=== PATIENT | female | born 1960 | race Two or more races ===

== ENCOUNTER 2020-01-28 07:03 | Day surgery (SDC) | payer MEDICARE, MEDICAID ==
[2020-01-27 07:36] LABS: BASOPHILS % (AUTO) 0.6 % (0.0-2.0); EOSINOPHILS % (AUTO) 4.4 % (1.0-6.0); HEMATOCRIT 36.8 % (36-46); HEMOGLOBIN 12.2 g/dL (12.0-16.0); LYMPHOCYTES # (AUTO) 1.7 K/uL (1.0-4.8); LYMPHOCYTES % (AUTO) 21.7 % (22.0-44.0); MEAN CORPUSCULAR HEMOGLOBIN 28.6 pg (26.0-34.0); MEAN CORPUSCULAR HGB CONC 33.2 G/dL (31.0-37.0); MEAN CORPUSCULAR VOLUME 86 fL (80-100); MONOCYTES # (AUTO) 0.6 K/uL (0.1-1.0); MONOCYTES % (AUTO) 7.4 % (2.0-9.0); NEUTROPHILS # (AUTO) 5.2 K/uL (1.8-7.7); NEUTROPHILS % (AUTO) 65.9 % (40.0-70.0); PLATELET COUNT (AUTO) 279 K/uL (150-450); RED BLOOD CELL COUNT(AUTO) 4.28 MIL/uL (4.00-5.20); RED CELL DISTRIBUTION WIDTH 15.4 % (11.5-14.5)
[2020-01-27 07:41] LABS: CALCIUM, TOTAL 9.4 mg/dL (8.8-10.5); CREATININE 1.12 mg/dL (0.60-1.30); POTASSIUM 3.8 mmol/L (3.5-5.1)
[2020-01-27 07:53] LABS: PROTHROMBIN TIME 10.7 SEC (9.4-11.6)
[~2020-01-28] VITALS: Ht 160 cm; Wt 134.5 kg
[~2020-01-28 07:03] MED LIST: ALBU8HFA PUFF; ASPI-728 PO; CHOL100018 PO; FURO40 PO; GABA-1216 PO; GLIM4 PO; HYDR-1475 PO; INSLAN SQ; ISOS30TA6 PO; LISI-662 PO; MELO-107 PO; METF-960 PO; METO50 PO; NITR0.4T50 SL; PIOG30TA10 PO; SIMV-260 PO; SITA100 PO; SODIUM CHLORIDE 0.9% 1,000 ML ONE
[2020-01-28] MEDS ORDERED: SODIUM CHLORIDE 0.9% 1,000 ML IV ONE (07:30)
[2020-01-28 08:32] LABS: GLUCOMETER DEV NAME(LOC) SDS.; GLUCOSE,POINT OF CARE 95 MG/DL (70-110)
[2020-01-28] MEDS ORDERED: VERAPAMIL HCL 2.5 MG/ML 2 ML VIAL ONE (08:37)
[2020-01-28] MEDS ORDERED: LIDOCAINE/PF 1% 30 ML VIAL ONE (08:37)
[2020-01-28] MEDS ORDERED: NITROGLYCERIN 50 MG/D5% WATER 250 ML ONE (08:37)
[2020-01-28] MEDS ORDERED: HEPARIN SODIUM,PORCINE 1,000 UNITS/ML 10 ML VIAL ONE (08:37)
[2020-01-28] MEDS ORDERED: HEPARIN SODIUM 1000 UNITS/NS 500 ML ONE (08:37)
[2020-01-28] MEDS ORDERED: EMPA25TA PO (08:45)
[2020-01-28] MEDS ORDERED: ACET650T9 PO (08:45)
[2020-01-28] MEDS ORDERED: POTA8TAB71 PO (08:45)
[2020-01-28] MEDS ORDERED: FLUT16H NASAL (08:45)
[2020-01-28] MEDS ORDERED: BECL10.62 IH (08:45)
== END 2020-01-28 10:15 | disposition home or self-care (01) ==
LOC: CATHLAB 07:03
PROVIDERS: ATTEND Internal Medicine Cardiovascular Disease
DX: I25.10 Atherosclerotic heart disease of native coronary artery without angina pectoris (principal); Z53.8 Procedure and treatment not carried out for other reasons; E11.9 Type 2 diabetes mellitus without complications; I10 Essential (primary) hypertension; D64.9 Anemia, unspecified; J45.909 Unspecified asthma, uncomplicated; Z87.01 Personal history of pneumonia (recurrent); Z11.59 Encounter for screening for other viral diseases; Z79.01 Long term (current) use of anticoagulants; Z88.8 Allergy status to other drugs, medicaments and biological substances; Z90.710 Acquired absence of both cervix and uterus; Z98.890 Other specified postprocedural states
CPT/HCPCS: 36415; 80048; 82962; 85025; 85610; 85730; 87635; 93005; J1644 ×2; J3490 ×3; J7030

== ENCOUNTER 2020-02-10 06:54 | Day surgery (SDC) | payer MEDICARE, OTHER ==
[2020-02-09 07:39] LABS: BASOPHILS % (AUTO) 0.7 % (0.0-2.0); EOSINOPHILS % (AUTO) 4.5 % (1.0-6.0); HEMATOCRIT 35.4 % (36-46); HEMOGLOBIN 11.8 g/dL (12.0-16.0); LYMPHOCYTES # (AUTO) 2.1 K/uL (1.0-4.8); LYMPHOCYTES % (AUTO) 21.1 % (22.0-44.0); MEAN CORPUSCULAR HEMOGLOBIN 28.8 pg (26.0-34.0); MEAN CORPUSCULAR HGB CONC 33.3 G/dL (31.0-37.0); MEAN CORPUSCULAR VOLUME 86 fL (80-100); MONOCYTES # (AUTO) 0.8 K/uL (0.1-1.0); NEUTROPHILS # (AUTO) 6.5 K/uL (1.8-7.7); NEUTROPHILS % (AUTO) 65.7 % (40.0-70.0); PLATELET COUNT (AUTO) 284 K/uL (150-450); RED BLOOD CELL COUNT(AUTO) 4.09 MIL/uL (4.00-5.20); RED CELL DISTRIBUTION WIDTH 15.4 % (11.5-14.5)
[2020-02-09 07:46] LABS: CALCIUM, TOTAL 9.3 mg/dL (8.8-10.5); CREATININE 1.05 mg/dL (0.60-1.30); POTASSIUM 4.9 mmol/L (3.5-5.1)
[2020-02-09 08:30] LABS: PROTHROMBIN TIME 10.7 SEC (9.4-11.6)
[~2020-02-10] VITALS: Ht 160 cm; Wt 135.0 kg
[~2020-02-10 06:54] MED LIST changes: +ACET650T9 PO; +BECL10.62 IH; +EMPA25TA PO; +FLUT16H NASAL; -HYDR-1475 PO; -PIOG30TA10 PO; +POTA8TAB71 PO
[2020-02-10] MEDS ORDERED: SODIUM CHLORIDE 0.9% 1,000 ML IV ONE (07:30)
[2020-02-10 08:00] LABS: GLUCOMETER DEV NAME(LOC) SDS.; GLUCOSE,POINT OF CARE 246 MG/DL (70-110)
[2020-02-10] MEDS ORDERED: LIDOCAINE/PF 1% 30 ML VIAL ONE (08:36)
[2020-02-10] MEDS ORDERED: HEPARIN SODIUM 1000 UNITS/NS 1,000 ML ONE (08:36)
[2020-02-10] MEDS ORDERED: IOHEXOL 300 MG/ML 150 ML VIAL ONE (08:36)
[2020-02-10] MEDS ORDERED: SODIUM BICARBONATE 50 MEQ/50 ML VIAL ONE (08:36)
[2020-02-10] MEDS ORDERED: HEPARIN SODIUM 1000 UNITS/NS 1,000 ML IARTER ONE (09:59)
[2020-02-10] MEDS ORDERED: LIDOCAINE 1% 30 ML/SOD BICARB 8.4% 4 ML SQ ONE (10:00)
[2020-02-10] MEDS ORDERED: IOHEXOL 300 MG/ML 150 ML VIAL IARTER ONE (10:00)
[2020-02-10 10:10] VITALS: BP 160/54
== END 2020-02-10 14:15 | disposition home or self-care (01) ==
LOC: CATHLAB 06:54
PROVIDERS: ATTEND Internal Medicine Cardiovascular Disease
DX: I25.10 Atherosclerotic heart disease of native coronary artery without angina pectoris (principal); E11.9 Type 2 diabetes mellitus without complications; E78.00 Pure hypercholesterolemia, unspecified; Z90.710 Acquired absence of both cervix and uterus; Z98.890 Other specified postprocedural states; Z87.01 Personal history of pneumonia (recurrent); Z72.89 Other problems related to lifestyle; Z79.82 Long term (current) use of aspirin; Z79.4 Long term (current) use of insulin
CPT/HCPCS: 36415; 80048; 82962; 85025; 85610; 85730; 87635; 93005; 93458; C1760; J1644; J3490 ×2; Q9967; J7030